=== PATIENT | female | born 1995 | race Caucasian/White ===

== ENCOUNTER 2016-09-04 04:05 | Emergency (ER) | payer SELFPAY ==
[~2016-09-04] VITALS: Ht 157.5 cm; Wt 63.6 kg
[2016-09-04 06:13] VITALS: BP 118/73
== END 2016-09-04 06:15 | disposition home or self-care (01) ==
LOC: EMS 04:08
DX: S80.212A Abrasion, left knee, initial encounter (principal); S00.83XA Contusion of other part of head, initial encounter; T74.21XA Adult sexual abuse, confirmed, initial encounter; W50.1XXA Accidental kick by another person, initial encounter; Y93.89 Activity, other specified; Y92.9 Unspecified place or not applicable; Y99.9 Unspecified external cause status
CPT/HCPCS: 99283